=== PATIENT | male | born 1990 | race Asian ===

== ENCOUNTER 2018-01-11 14:12 | Emergency (ER) | payer BC, OTHER ==
[2018-01-11 14:24] VITALS: BP 121/69; PULSE 79; TEMP 97.8
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
== END 2018-01-11 15:13 | disposition home or self-care (01) ==
LOC: JERFT 14:12
DX: S16.1XXA Strain of muscle, fascia and tendon at neck level, initial encounter (principal); V43.52XA Car driver injured in collision with other type car in traffic accident, initial encounter; Y92.411 Interstate highway as the place of occurrence of the external cause; Y93.89 Activity, other specified; Y99.8 Other external cause status
CPT/HCPCS: 99281-25